=== PATIENT | male | born 1975 | race Caucasian/White ===

== ENCOUNTER → 2019-11-08 09:16 | Outpatient (BNVA) | payer MEDICAID, SELFPAY | PROVIDERS: Family Provider Family Medicine; PCP Family Medicine; Visit Provider Internal Medicine Rheumatology | DX: M19.90 Unspecified osteoarthritis, unspecified site (principal); Z79.899 Other long term (current) drug therapy; Z11.59 Encounter for screening for other viral diseases; Z11.1 Encounter for screening for respiratory tuberculosis; G89.29 Other chronic pain; M54.5 Low back pain; M54.12 Radiculopathy, cervical region; M70.61 Trochanteric bursitis, right hip; M70.62 Trochanteric bursitis, left hip; Y93.9 Activity, unspecified; Z72.89 Other problems related to lifestyle | CPT/HCPCS: 36415; 86480; 86812; 99204 ==

== ENCOUNTER → 2019-11-08 10:06 | Outpatient (BNVA) | payer MEDICAID, SELFPAY | PROVIDERS: Family Provider Family Medicine; PCP Family Medicine; Visit Provider Internal Medicine Rheumatology | DX: M19.90 Unspecified osteoarthritis, unspecified site (principal); Z79.899 Other long term (current) drug therapy; Z11.59 Encounter for screening for other viral diseases; Z11.1 Encounter for screening for respiratory tuberculosis; G89.29 Other chronic pain; M54.5 Low back pain; M54.12 Radiculopathy, cervical region; M70.61 Trochanteric bursitis, right hip; M70.62 Trochanteric bursitis, left hip; Y93.9 Activity, unspecified; Z72.89 Other problems related to lifestyle | CPT/HCPCS: 85025 ==

== ENCOUNTER 2019-11-08 11:08 | Outpatient (CLI) | payer MEDICAID, SELFPAY ==
--- NOTE | 2019-11-08 11:16 | XR_ITS ---
WS: [id number] RIGHT FOOT: 3 VIEW(S) TECHNIQUE: PA, oblique and lateral. HISTORY: inflammatory arthritis COMPARISON: None available. No acute fracture or dislocation. Small erosion of the lateral first metatarsal head. No soft tissue abnormality or bone destruction. XR/XR foot RT min 3V* [id number] IMPRESSION: Single erosion first metatarsal head.
--- NOTE | 2019-11-08 11:16 | XR_ITS ---
WS: [id number] PELVIS: AP VIEW SUBMITTED HISTORY: inflammatory arthritis COMPARISON: None available. Bones and soft tissues of the pelvis are intact. No fracture or dislocation. No erosions or sclerosis or widening of the SI joints. XR/XR pelvis 1-2V* [id number] IMPRESSION: Negative pelvis.
--- NOTE | 2019-11-08 11:16 | XR_ITS ---
WS: [id number] RIGHT HAND: 3 VIEW(S) TECHNIQUE: PA, oblique and lateral. HISTORY: inflammatory arthritis COMPARISON: None available. No acute fracture or dislocation. No soft tissue or bone abnormality. XR/XR hand RT min 3V* [id number] IMPRESSION: Normal RIGHT hand.
--- NOTE | 2019-11-08 11:16 | XR_ITS ---
WS: [id number] LEFT FOOT: 3 VIEW(S) TECHNIQUE: PA, oblique and lateral. HISTORY: inflammatory arthritis COMPARISON: None available. No acute fracture or dislocation. Single erosion lateral first metatarsal head. No soft tissue abnormality or bone destruction. XR/XR foot LT min 3V* [id number] IMPRESSION: Single erosion first metatarsal head.
--- NOTE | 2019-11-08 11:16 | XR_ITS ---
WS: [id number] LEFT HAND: 3 VIEW(S) TECHNIQUE: PA, oblique and lateral. HISTORY: inflammatory arthritis COMPARISON: None available. No acute fracture or dislocation. No soft tissue or bone abnormality. XR/XR hand LT min 3V* [id number] IMPRESSION: Normal LEFT hand.
--- NOTE | 2019-11-08 11:16 | XR_ITS ---
WS: [id number] RIGHT SHOULDER: 1 VIEW(S) TECHNIQUE: AP view. HISTORY: inflammatory arthritis COMPARISON: None available. No fracture or dislocation or soft tissue abnormality. Very minimal narrowing of the AC joint. No erosions. No penciling. XR/XR shoulder RT 1V [id number] IMPRESSION: Mild AC joint arthritis.
--- NOTE | 2019-11-08 11:16 | XR_ITS ---
WS: [id number] LEFT SHOULDER: 1 VIEW(S) TECHNIQUE: AP view. HISTORY: inflammatory arthritis COMPARISON: None available. No fracture or dislocation or soft tissue abnormality. Mild narrowing of the AC joint. No erosions. XR/XR shoulder LT 1V [id number] IMPRESSION: Mild AC joint narrowing.
== END 2019-11-08 11:09 | disposition home or self-care (01) ==
LOC: RADWPI 11:12
PROVIDERS: Family Provider Family Medicine; PCP Family Medicine; Visit Provider Internal Medicine Rheumatology
DX: M19.90 Unspecified osteoarthritis, unspecified site (principal); M19.011 Primary osteoarthritis, right shoulder; M85.871 Other specified disorders of bone density and structure, right ankle and foot; M85.872 Other specified disorders of bone density and structure, left ankle and foot; Z79.899 Other long term (current) drug therapy; Z11.59 Encounter for screening for other viral diseases
CPT/HCPCS: 72170; 73020; 73130; 73630; 80076; 82306; 82565; 86140; 86431; 86704; 86803; 87340

== ENCOUNTER 2019-11-08 11:58 | Outpatient (CLI) | payer MEDICAID, SELFPAY ==
--- NOTE | 2019-11-08 12:03 | XR_ITS ---
WS: [id number] LATERAL LUMBAR SPINE: 3 view. Lateral radiographs are performed in upright neutral, flexion and extension to the patient's toleranc e. HISTORY: lumbar pain COMPARISON: None available. Normal lumbar alignment. Mild disc space narrowing and osteophytes throughout the lumbar spine. With flexion and extension no instability. XR/XR lumbar spine f/e only [id number] IMPRESSION: No lumbar spine instability.
== END 2019-11-08 11:59 | disposition home or self-care (01) ==
LOC: RADWPI 12:01
PROVIDERS: Family Provider Family Medicine; PCP Family Medicine; Visit Provider Specialist
DX: M51.36 Other intervertebral disc degeneration, lumbar region (principal)
CPT/HCPCS: 72120

== ENCOUNTER → 2020-03-12 14:37 | Outpatient (BNVA) | payer SELFPAY | PROVIDERS: Family Provider Family Medicine; PCP Family Medicine; Visit Provider Family Medicine | DX: I10 Essential (primary) hypertension (principal); R05 Cough; Z68.41 Body mass index [BMI] 40.0-44.9, adult; F17.211 Nicotine dependence, cigarettes, in remission | CPT/HCPCS: 71046 ==

== ENCOUNTER → 2021-11-25 10:10 | Outpatient (BNVA) | payer OTHER, SELFPAY | PROVIDERS: Family Provider Family Medicine; PCP Family Medicine; Visit Provider Nurse Practitioner | DX: M79.602 Pain in left arm (principal); W19.XXXA Unspecified fall, initial encounter | CPT/HCPCS: 73080; 73110; 73130 ==

== ENCOUNTER → 2023-02-10 08:59 | Outpatient (BNVA) | payer OTHER, SELFPAY | PROVIDERS: Family Provider Family Medicine; PCP Family Medicine; Referring Provider Family Medicine; Visit Provider Physician Assistant | DX: M47.816 Spondylosis without myelopathy or radiculopathy, lumbar region (principal) | CPT/HCPCS: 72110 ==

== ENCOUNTER 2023-05-08 08:42 | Outpatient (CLI) | payer SELFPAY ==
--- NOTE | 2023-05-08 08:45 | MR_ITS ---
WS: [id number] MRI LUMBAR SPINE NONCONTRAST HISTORY: lower back pain COMPARISON: 11/18/2019 TECHNIQUE: Sagittal and axial multisequence imaging is submitted. Normal lumbar alignment with no compression fractures or marrow edema. Disc spaces and vertebral body heights are well-preserved. Conus terminates normally at L1-2 disc level. L1-L2: Benign hemangioma L1. Mild facet arthritis and ligamentum flavum hypertrophy and disc bulging. Very mild encroachment upon the ventral thecal sac with no stenosis. L2-L3: Mild annular disc bulging, ligamentum flavum and facet arthritis. Very mild encroachment upon the subarticular recesses. Disc contacts but not displacing the traversing L3 nerve roots. L3-L4: Mild annular disc bulging. Central to LEFT paracentral disc protrusion extends into the subart icular recess. Disc contacts and displaces the traversing LEFT L4 nerve root. Mild disc encroachment into the RIGHT subarticular recess also. Mild bilateral foraminal narrowing. L4-L5: Mild annular disc bulging with a central disc protrusion. Moderate ligamentum flavum and facet arthritis. Encroachment into the thecal sac by the facet disease and disc disease. Mild disc contact on the RIGHT traversing L5 nerve root. Mild central and bilateral subarticular recess stenosis L5-S1: Mild bilateral facet arthritis. No stenosis. IMPRESSION: 1. Mild progression of degenerative disc disease and bulging and facet arthritis since 2019. 2. Central to LEFT paracentral disc protrusion at L3-4 was also noted on the prior study from 2019 wi th similar contact on the traversing L4 nerve roots, LEFT greater than RIGHT. 3. Mild central and bilateral subarticular recess stenosis at L4-5 due to disc encroachment and facet disease. Mild disc encroachment upon the traversing L5 nerve roots. 4. Mild disc encroachment upon the subarticular recesses of L2-3.
== END 2023-05-08 08:43 | disposition home or self-care (01) ==
PROVIDERS: PCP Family Medicine; Visit Provider Physician Assistant
DX: M51.26 Other intervertebral disc displacement, lumbar region (principal); M48.061 Spinal stenosis, lumbar region without neurogenic claudication
CPT/HCPCS: 72148

== ENCOUNTER → 2024-07-08 14:05 | Outpatient (BNVA) | payer OTHER, SELFPAY | PROVIDERS: PCP Family Medicine | DX: S59.912A Unspecified injury of left forearm, initial encounter (principal); M77.8 Other enthesopathies, not elsewhere classified; X58.XXXA Exposure to other specified factors, initial encounter | CPT/HCPCS: 73080; 73110; 73130 ==

== ENCOUNTER 2024-07-19 12:01 | Outpatient (CLI) | payer OTHER, SELFPAY ==
--- NOTE | 2024-07-19 12:04 | XRR_ITS ---
PROCEDURE INFORMATION: Exam: XR Chest Exam date and time: 07/19/2024 12:15 PM Age: 48 years old Clinical indication: Cough TECHNIQUE: Imaging protocol: Radiologic exam of the chest. Views: 2 views. COMPARISON: CR XR chest 2V* [id number] 03/12/2020 2:51 PM FINDINGS: Lungs: Questionable opacity in the right lung base likely represents mild subsegmental atelectasis. No large focal consolidation to suggest overlying pneumonia. Pleural spaces: No pleural effusion. No distinct pneumothorax. Heart/Mediastinum: Cardiomediastinal silhouette is midline and normal in size. Bones/joints: No acute osseous findings. XR/XR chest 2V* [id number] IMPRESSION: Questionable opacity in the right lung base likely represents mild subsegmental atelectasis. No large focal consolidation to suggest overlying pneumonia.
== END 2024-07-19 12:02 | disposition home or self-care (01) ==
LOC: RAD 12:02
PROVIDERS: PCP Family Medicine; Visit Provider Family Medicine
DX: R91.8 Other nonspecific abnormal finding of lung field (principal)
CPT/HCPCS: 71046

== ENCOUNTER → 2024-08-01 08:33 | Outpatient (BNVA) | payer SELFPAY | PROVIDERS: PCP Family Medicine; Visit Provider Family Medicine | DX: I10 Essential (primary) hypertension (principal); E66.01 Morbid (severe) obesity due to excess calories; Z68.41 Body mass index [BMI] 40.0-44.9, adult | CPT/HCPCS: 80053; 80061; 83036; 84443; 85025; 86140 ==

== ENCOUNTER → 2024-09-12 16:40 | Outpatient (BNVA) | payer OTHER, SELFPAY | PROVIDERS: PCP Family Medicine; Visit Provider Family Medicine | DX: J18.9 Pneumonia, unspecified organism (principal) | CPT/HCPCS: 87400; 87426 ==

== ENCOUNTER 2024-12-05 14:20 | Outpatient (CLI) | payer OTHER, SELFPAY ==
--- NOTE | 2024-12-05 14:30 | MR_ITS ---
WS: [id number] MRI BRAIN WITH AND WITHOUT CONTRAST HISTORY: headache/ nausea/ r/o aneurysm COMPARISON: MR angiogram 02/11/2019 TECHNIQUE: Multiplanar imaging performed through the brain with MultiHance 20 ml's IV. No acute infarcts are seen. Eugene-white matter differentiation is well preserved. No hippocampal atrophy. No prior infarct. No susceptibility artifacts or prior lacunar infarcts. Ventricles and extra-axial spaces are normal. Clivus and pituitary gland are normal. Visualized posterior fossa and brainstem are also normal. Postcontrast images are negative for masses or vascular malformations. Dural venous sinuses are normal. Paranasal sinuses: Mucous retention cyst or polyp in the RIGHT maxillary sinus. No air-fluid levels. Mastoid air cells: Normal. Calvarium and scalp: Normal. MR/MR head wo/w con [id number] IMPRESSION: 1. No acute infarct or mass. 2. No significant atrophy. 3. No enhancing mass or vascular malformations. 4. For more sensitive and specific evaluation for intracranial aneurysm consid er MR angiogram [facility] [place].
[2024-12-05] MEDS: gadobenate dimeglumine 20 mL vial IV (15:15)
== END 2024-12-05 14:21 | disposition home or self-care (01) ==
LOC: RAD 14:23
PROVIDERS: PCP Family Medicine; Visit Provider Family Medicine
DX: R51.9 Headache, unspecified (principal); R11.0 Nausea; R93.0 Abnormal findings on diagnostic imaging of skull and head, not elsewhere classified
CPT/HCPCS: 70553